=== PATIENT | female | born 1990 | race American Indian/Alaskan Native ===

== ENCOUNTER 2021-03-15 11:20 | Emergency (ER) | payer BC ==
[2021-03-15] MEDS ORDERED: ONDANSETRON 4 MG ODT TAB PO ONE (11:35)
--- NOTE | 2021-03-15 11:46 | Emergency Department Report ---
ED N/V/D HPI - General Chief complaint: Nausea/Vomiting/Diarrhea Stated complaint: VOMITING Time Seen by Provider: 03/15/21 11:44 Source: patient Mode of arrival: Ambulatory Limitations: No Limitations - History of Present Illness Initial comments: 30-year-old female presents to the ER today with complaints of nausea, vomiting, diarrhea and concerned that she may still be . Patient states that her nausea, vomiting and diarrhea started last week Monday. Patient states that the emesis is mainly food or liquid. She states that she cannot seem to keep anything down. She reports watery diarrhea without any blood or mucus and reports about 4-5 episodes per day. She reports mild intermittent abdominal cramping. She denies any fever, chills, ill contacts, or bad food intake or any recent antibiotic use. She states that she recently tr aveled to [place] in [place] but denies any out of the country travel. Patient states that her last menstrual cycle was January 04, 2021. She states that she found out she was but she opted to do an elective . She states that she went to the clinic on February 07, 2021 and had a procedural but she followed up 1 week later and found out that she was still and so they gave her 5 methotrexate tablets to take, 1 of which was given in the clinic and therefore she had to take at home. Patient states that she was about 5 weeks when she had the procedure February 07. Patient states after taking the methotrexate she bleed for only one day. Patient states that she was still concerned and so follow-up with the INTERNAL COMBUSTION ENGINE INSPECTOR at the clinic again today. She states that she did have a ultrasound done at the clinic today and it did show that she was with an IUP measuring at 10 weeks but no heart tone. She states that the provider wanted her to return at 330 today to have another procedure done but she states that she wanted to come to the ER because she felt like something was wrong and the entire thing did not make any sense to her as to why she was still . This is her second , 1 child at home and this will be her first elective . She has never had any additional miscarriages or other abortions in the past. MD complaint: nausea, vomiting, diarrhea, abdominal pain, other () - Related Data Previous Rx's Medication Instructions Recorded Last Taken Type Dicyclomine [Bentyl] 10 mg PO TID PRN #30 capsule 03/15/21 Unknown Rx Ondansetron [Zofran Odt] 4 mg PO Q8HR PRN #15 tab.rapdis 03/15/21 Unknown Rx Allergies Allergy/AdvReac Type Severity Reaction Status Date / Time No Known Allergies Allergy Unverified 03/15/21 11:22 ED Review of Systems ROS: Stated complaint: VOMITING Other details as noted in HPI Comment: All other systems reviewed and negative Constitutional: denies: chills, fever Eyes: denies: eye pain, eye discharge, vision change ENT: denies: ear pain, throat pain Respiratory: denies: cough, shortness of breath, SOB with exertion, SOB at rest, wheezing Cardiovascular: denies: chest pain, palpitations, dyspnea on exertion, edema, syncope, paroxysmal nocturnal dyspnea Gastrointestinal: abdominal pain, nausea, vomiting. denies: diarrhea, constipation, hematemesis, hematochezia Genitourinary: other (). denies: urgency, dysuria, frequency, hematuria, discharge, abnormal menses, dyspareunia Musculoskeletal: denies: back pain, joint swelling, arthralgia Skin: denies: rash, lesions, change in color, change in hair/nails, pruritus Neurological: denies: headache, weakness, numbness, paresthesias, abnormal gait, vertigo Psychiatric: denies: anxiety, depression, auditory hallucinations, visual hallucinations, homicidal thoughts, suicidal thoughts Hematological/Lymphatic: denies: easy bleeding, easy bruising, swollen glands ED Past Medical Hx - Past Medical History Previous Medical History?: No - Surgical History Past Surgical History?: No - Medications Home Medications: Home Medications Medication Instructions Recorded Confirmed Last Taken Type Dicyclomine [Bentyl] 10 mg PO TID PRN #30 capsule 03/15/21 Unknown Rx Ondansetron [Zofran Odt] 4 mg PO Q8HR PRN #15 tab.rapdis 03/15/21 Unknown Rx ED Physical Exam - General Limitations: No Limitations General appearance: alert, in no apparent distress - Head Head exam: Present: atraumatic, normocephalic, normal inspection - Eye Eye exam: Present: normal appearance, PERRL, EOMI Pupils: Present: normal accommodation - Neck Neck exam: Present: normal inspection, full ROM. Absent: meningismus - Respiratory Respiratory exam: Present: normal lung sounds bilaterally. Absent: respiratory distress, wheezes, rales, rhonchi - Cardiovascular Cardiovascular Exam: Present: regular rate, normal rhythm, normal heart sounds - GI/Abdominal GI/Abdominal exam: Present: soft. Absent: distended, tenderness, guarding, rebound, rigid - Neurological Exam Neurological exam: Present: alert, oriented X3, CN II-XII intact, normal gait - Psychiatric Psychiatric exam: Present: normal mood - Skin Skin exam: Present: intact ED Course Vital Signs 03/15/21 11:24 Temperature 97.8 F Pulse Rate 103 H Respiratory 18 Rate Blood Pressure 135/80 [Right] O2 Sat by Pulse 97 Oximetry ED Medical Decision Making - Lab Data Result diagrams: 03/15/21 12:59 03/15/21 12:59 - Radiology Data Radiology results: report reviewed Patient: ÁNGEL NAGEL MR#: [id number] : 1990 Acct:[id number] Age/Sex: 30 / F ADM Date: 03/15/21 Loc: ED Attending Dr: Ordering Physician: ANDIE HENRIQUEZ Date of Service: 03/15/21 Procedure(s): US OB transvaginal Accession Number(s): [id number] cc: ANDIE HENRIQUEZ ULTRASOUND OBSTETRIC INDICATION / CLINICAL INFORMATION: incomplete elective /pain/bleeding. Clinical Gestational Age (GA): 9.4 weeks.days TECHNIQUE: Transvaginal. COMPARISON: None available. FINDINGS: GESTATIONAL SAC: Well-defined oval shape and intrauterine in location. YOLK SAC: No significant abnormality. EMBRYO/FETUS: There is an irregularly shaped tissue within the gestational sac. - [place]-Rump Length = 4.9 cm = 8.4 weeks.days - Heart Rate, beats per minute (if present) = none ADNEXA: No significant abnormality. FREE FLUID: None. ADDITIONAL FINDINGS: None. IMPRESSION: 1. Single intrauterine with irregularly-shaped tissue and no evidence of heart tones. These findings are concerning for demise/miscarriage. Close clinical and ultrasound follow-up is recommended as clinically indicated. Signer Name: Minerva Beth MD Signed: 03/15/2021 12:37 PM Workstation Name: [id number] Transcribed By: Dictated By: MINERVA BETH Electronically Authenticated By: MINERVA BETH Signed Date/Time: 03/15/21 1237 DD/ 1229 - Medical Decision Making Labs reviewed --CBC/CMP unremarkable[place] [id number]. OB US shows Single intrauterine with irregularly-shaped tissue and no evidence of heart tones. These findings are concerning for demise/miscarriage. Close clinical and ultrasound follow-up is recommended as clinically indicated. Results were discussed with patient. She is currently resting comfortably. No vomiting or diarrhea during stay. She has a nonsurgical abdominal exam. She is not toxic or ill-appearing and appears hydrated. Informed patient that she will need to follow-up with the INTERNAL COMBUSTION ENGINE INSPECTOR at the clinic or her regular INTERNAL COMBUSTION ENGINE INSPECTOR for D&C. Patient expressed understanding of instructions and agree with plan. Patient was stable at time of discharge. Critical care attestation.: If time is entered above; I have spent that time in minutes in the direct care of this critically ill patient, excluding procedure time. ED Disposition Clinical Impression: Incomplete , History of elective , Vomiting and diarrhea Disposition: DC-01 TO HOME OR SELFCARE Is pt being admited?: No Does the pt Need Aspirin: No Condition: Stable Instructions: Incomplete Miscarriage, Nausea and Vomiting, Adult, Fxeg-ox-Typt Additional Instructions: Recommend I take the Zofran as needed for nausea and vomiting. Take the Bentyl as needed for abdominal cramps. If your diarrhea continues recommend I take Imodium from [id number]. Recommend that you follow-up with the clinic or your INTERNAL COMBUSTION ENGINE INSPECTOR as you may need a D&C. Drink lots of fluids. Return to the ER if your symptoms changes or worsens in any way. Prescriptions: Dicyclomine [Bentyl] 10 mg PO TID PRN #30 capsule PRN Reason: abdominal cramps Ondansetron [Zofran Odt] 4 mg PO Q8HR PRN #15 tab.rapdis PRN Reason: nausea/vomiting Referrals: [facility] [Provider Group] - 3-5 Days Time of Disposition: 14:45
--- NOTE | 2021-03-15 12:41 | Ultrasound Report ---
ULTRASOUND OBSTETRIC INDICATION / CLINICAL INFORMATION: incomplete elective /pain/bleeding. Clinical Gestational Age (GA): 9.4 weeks.days TECHNIQUE: Transvaginal. COMPARISON: None available. FINDINGS: GESTATIONAL SAC: Well-defined oval shape and intrauterine in location. YOLK SAC: No significant abnormality. EMBRYO/FETUS: There is an irregularly shaped tissue within the gestational sac. - [place]-Rump Length = 4.9 cm = 8.4 weeks.days - Heart Rate, beats per minute (if present) = none ADNEXA: No significant abnormality. FREE FLUID: None. ADDITIONAL FINDINGS: None. IMPRESSION: 1. Single intrauterine with irregularly-shaped tissue and no evidence of heart tones. These findings are concerning for demise/miscarriage. Close clinical and ultrasound foll ow-up is recommended as clinically indicated. Signer Name: Woodrow Acuna MD Signed: 03/15/2021 12:37 PM Workstation Name: [id number]
[2021-03-15 13:46] LABS: Basophils # (Auto) 0.1 K/mm3 (0.0-0.1); Basophils % (Auto) 1.2 % (0.0-1.8); Eosinophils # (Auto) 0.1 K/mm3 (0.0-0.4); Eosinophils % (Auto) 0.8 % (0.0-4.3); Hematocrit 35.9 % (30.3-42.9); Hemoglobin 12.7 gm/dl (10.1-14.3); Lymphocytes # (Auto) 1.5 K/mm3 (1.2-5.4); Lymphocytes % (Auto) 22.5 % (13.4-35.0); Mean Corpuscular HGB Conc 35 % (30-34); Mean Corpuscular Volume 100 fl (79-97); Monocytes # (Auto) 0.5 K/mm3 (0.0-0.8); Monocytes % (Auto) 8.2 % (0.0-7.3); Platelet Count 260 K/mm3 (140-440); Red Cell Distribution Width 14.1 % (13.2-15.2)
[2021-03-15 13:51] LABS: Alanine Aminotransferase 12 units/L (7-56); Albumin 3.8 g/dL (3.9-5); Blood Urea Nitrogen 8 mg/dL (7-17); Calcium 9.2 mg/dL (8.4-10.2); Hemolysis Index 10
[2021-03-15 13:54] LABS: BUN/Creatinine Ratio 16
[2021-03-15 15:10] LABS: Bilirubin,Urine NEG (Negative); Blood,Urine NEG (Negative); Color,Urine Yellow (Yellow); Mucus,Urine 1+ /HPF; Protein,Urine <15 mg/dL mg/dL (Negative); Urobilinogen,Urine < 2.0 mg/dL (<2.0)
[2021-03-15 15:51] VITALS: BP 128/73
== END 2021-03-15 15:52 | disposition home or self-care (01) ==
LOC: ED 11:20
DX: O03.4 Incomplete spontaneous abortion without complication (principal); O21.9 Vomiting of pregnancy, unspecified; O26.891 Other specified pregnancy related conditions, first trimester; R19.7 Diarrhea, unspecified; Z3A.08 8 weeks gestation of pregnancy; Z79.899 Other long term (current) drug therapy
CPT/HCPCS: 36415; 76817; 80053; 81001; 83690; 83735; 84702; 85025; 99284; Q0162